=== PATIENT | female | born 1975 | race Caucasian/White ===

== ENCOUNTER 2023-10-21 16:02 | Outpatient (CLI) | payer MEDICAID, SELFPAY | END 2023-10-21 16:03 | disposition home or self-care (01) | LOC: NFLDREF 10-22 09:40 | PROVIDERS: Visit Provider Nurse Practitioner Family | DX: R82.90 Unspecified abnormal findings in urine (principal) | CPT/HCPCS: 87086 ==

== ENCOUNTER 2024-01-21 08:26 | Outpatient (CLI) | payer MEDICAID, SELFPAY | END 2024-01-21 08:27 | disposition home or self-care (01) | PROVIDERS: PCP Registered Nurse; Visit Provider Registered Nurse | DX: E03.9 Hypothyroidism, unspecified (principal); I10 Essential (primary) hypertension; Z13.220 Encounter for screening for lipoid disorders | CPT/HCPCS: 80053; 80061; 84443 ==

== ENCOUNTER 2024-02-22 08:01 | Outpatient (CLI) | payer MEDICAID, SELFPAY ==
--- NOTE | 2024-02-22 09:09 | W.ANESCHARGE ---
Anesthesia Charges Start Date/Time Anesthesia Start Date: 02/22/24 Anesthesia Start Time: 08:41 Stop Date/Time Anesthesia Stop Date: 02/22/24 Anesthesia Stop Time: 09:08
--- NOTE | 2024-02-22 10:52 | W.ANESCHARGE ---
Anesthesia Charges Start Date/Time Anesthesia Start Date: 02/22/24 Anesthesia Start Time: 08:41 Stop Date/Time Anesthesia Stop Date: 02/22/24 Anesthesia Stop Time: 09:08
== END 2024-02-22 08:02 | disposition home or self-care (01) ==
LOC: OP CLINIC 08:02
PROVIDERS: Visit Provider Surgery
DX: Z12.11 Encounter for screening for malignant neoplasm of colon (principal); D12.3 Benign neoplasm of transverse colon
CPT/HCPCS: 00811; 45380; 45385; 88305; J2704

== ENCOUNTER 2024-04-17 14:55 | Outpatient (CLI) | payer MEDICAID, SELFPAY ==
--- NOTE | 2024-04-17 15:00 | CRLHL7_ITS ---
For Patients: As a result of the Century Cures Act, medical imaging exams and procedure reports are released immediately into your electronic medical record. You may view this report before your referring provider. If you have questions, please contact your health care provider. BILATERAL SCREENING MAMMOGRAM WITH COMPUTER-AIDED DETECTION AND TOMOSYNTHESIS TECHNIQUE: CC and MLO views were obtained. These mammographic images have been obtained using full-field digital technique. These mammographic images were interpreted with the benefit of computer-aided detection. Breast Tomosynthesis was used in this interpretation. COMPARISON FILM: No comparison available. FINDINGS: There are scattered areas of fibroglandular density. IMPRESSION: There is no radiographic evidence for malignancy. ASSESSMENT: BI-RADS Category 1: Negative RECOMMENDATION: Routine screening mammogram in 1 year. A lay language report of this examination will be provided to the patient. Patel Fish M.D. Diagnostic Radiologist [email or web address] SP/Dictated by: Patel Fish MD @ 05/01/2024 8:24:00 AM (Electronically Signed)
== END 2024-04-17 14:56 | disposition home or self-care (01) ==
LOC: MAMMO 14:56
PROVIDERS: Visit Provider Registered Nurse
DX: Z12.31 Encounter for screening mammogram for malignant neoplasm of breast (principal)
CPT/HCPCS: 77063; 77067

== ENCOUNTER 2024-07-05 11:02 | Emergency (ER) | payer MEDICAID, SELFPAY ==
--- OUTSIDE RECORDS SUMMARY | 2024-07-05 11:06 | XMS_ITS | Patient Health Record ---
Author Organization [facility] Address [address] [place] [address] Care Team Providers Care Forming Press Operator Name Role Phone None, No PCP Primary Care Provider UnavailSong Hardy Unavailable [phone] Genoveva Bond Unavailable [phone] Allergies Allergen (clinical drug ingredient) Drug/Non Drug Allergy documented on EMR Reaction Allergy Type Onset Date Status gabapentin gabapentin Unknown Drug Allergy Activ e Substance with sulfonamide structure and antibacterial mechanism of action (substance) Sulfa Antibiotics Unknown Drug Allergy Active Results Component Value Reference Range Notes IRON, TIBC AND FERRITIN PANE L Reviewed date:04/19/2024 11:00:44 AM Interpretation: Performing Lab:[facility] [id number], [id number] Javier Smith Notes/Report: 0; 0; 0 IRON, TOTAL 72 40-190 mcg/dL IRON BINDING CAPACITY 251 250-450 mcg/dL (princess c) % SATURATION 29 16-45 % (calc) FERRITIN 101 16-232 ng/mL ESTRADIOL Reviewed date:04/19/2024 11:00:44 AM Interpretation: Performing Lab:[facility] [id number], [id number] Javier Smith Notes/Report: 0; 0; 0 ESTRADIOL 91 Reference Range Follicular Phase: 19-144 measurement. The cross reactivity could lead to falsely elevated estradiol test results leading to an inappropriate clinical assessment of estrogen status. [facility] order code [id number], Ultrasensitive LC/MS/MS demonstrates negligible cross reactivity with fulvestrant. Mid-Cycle: 64-357 Luteal Phase: 56-214 Postmenopausal: < or = 31 Reference range established on post-pubertal patient population. No pre-pubertal reference range established using this assay. For any patients for whom low Estradiol levels are anticipated (e.g. males, pre-pubertal children and hypogonadal/post-menopausal females), the [facility] Estradiol, Ultrasensitive, LCMSMS assay is recommended (order code [id number]). Please note: patients being treated with the drug fulvestrant (Faslodex(R)) have demonstrated significant interference in immunoassay methods for estradiol FSH Reviewed date:04/19/2024 11:00:44 AM Interpretation: Performing Lab:[facility] [address], [id number] Javier Smith Notes/Report: 0; 0; 0 FSH 17.6 Reference Range Follicular Phase 2.5-10.2 Mid-cycle Peak 3.1-17.7 Luteal Phase 1.5- 9.1 Postmenopausal 23.0-116.3 Testosterone, Total (IH) Reviewed date:04/19/2024 11:00:44 AM Interpretation: Performing Lab: Notes/Report: Access 2 ([id number]), [facility] Sex Hormone Binding Globulin (IH) Reviewed date:04/19/2024 11:00:45 AM Interpretation: Performing Lab: Notes/Report: Access 2 ([id number]), [facility] Testosterone, Free () Reviewed date:04/19/2024 11:00:45 AM Interpretation: Performing Lab: Notes/Report: Access 2 ([id number]), [facility] Reason For Referral No Information Medications Medication SIG (Take, Route, Frequency, Duration) Notes Start Date End Date Status Vitamin C Active Vitamin B12 Active Zolpidem Tartrate Ac tive Levothyroxine MG 0.125 Daily Created by [employer]. Dosage Instructions: Dosage= .125,Unit= MG,Periodicity= Daily Active Atomoxetine HCl 60 Daily Created by [employer]estry. Dosage Instructions: Dosage= 60,,Periodicity= Daily Active Estradiol MG 0.1 Twice weekly Created by [employer]estry. Dosage Instructions: Dosage= .10,Unit= MG,Periodicity= Twice weekly Active Testosterone Cream 12mg (3mg dose) Active Microgestin 1/20 Act hima Microgestin 1/20 1-20 MG-MCG 1 tablet Orally Once a day for 84 days Each pack is a 3 week supply, taking continuously 04/25/2024 Active Social History Tobacco Use: Social History Observation Description Date Details (start date - stop date) Never Smoker NA - NA Tobacco Control (Standard) Question Answer Notes Tobacco use: Nonsmoker Problems Problem Type SNOMED Code ICD Code Onset Dates Problem Status W/U Status Risk Notes Problem 16373495 Chronic fatigue (R53.82) Active confirmed Problem 588973282 Perimenopausal symptoms (N95.1) Active confirmed Vital Signs Blood pressure diastolic 76 mm Hg 04/25/2024 Height 66 in 04/25/2024 Blood pressure systolic 116 mm Hg 04/25/2024 Weight 145 lbs 04/25/2024 BMI 23.4 kg/m2 04/25/2024 Encounters Encounter Location Date Provider Diagnosis [address] [id number] 03/21/2024 Genoveva Bond [address] [id number] 03/21/2024 Genoveva Bond Menopausal symptoms N95.1 ; Chronic fatigue R53.82 and Low libido R68.82 [facility] [address] [place] [address] 04/18/2024 Genoveva Bond Menopausal and femal e climacteric states N95.1 and Fatigue R53.[address] [id number] 04/25/2024 Genoveva Bond Perimenopausal sympt oms N95.1 and Chronic fatigue R53.82 Assessments Encounter Date Diagnosis (ICD Code) Assessment Notes Treatment Notes Treatment Clinical Notes Section Notes 03/21/2024 Menopausal symptoms (ICD-10 - N95.1) 04/18/2024 Menopausal and female climacteric states (ICD-10 - N95.1) 04/18/2024 Fatigue (ICD-10 - R53.83) 03/21/2024 Chronic fatigue (ICD-10 - R53.82) 04/25/2024 Perimenopausal symptoms (ICD-10 - N95.1) -HRT labs reviewed in detail today -Discussed treatment options in detail including restarting OCPS, testosterone cream/gel/pellets , use of each therapy, common side effects, possible benefits, frequency of use, and cost of each -Mammogram up to date -Reviewed risk/benefit of OCPs including risk of blood clots. If B/P is elevated in the future, should stop OCPS until this is treated. -Plan for follow up in 3 months with free and total testosterone 1 week prior -Testosterone cream 3mg daily to labia, Rx to Mix 03/21/2024 Low libido (ICD-10 - R68.82) 04/25/2024 Chronic fatigue (ICD-10 - R53.82) -Discussed nothing noted in labs which would indicate extreme fatigue 03/21/2024 Other -Recommended stopping OCPs for 3-4 week and RTC for HRT Labs. Reasoning for labs discussed in detail -HRT options reviewed in detail, including estradiol, progesterone, testosterone (all routes), risks/benefits, common side effects, costs and dosing schedule. -Counseled on the differences between FDA approved bio-identical hormone replacement, and non-FDA approved compounded bio-idential hormone replacement. -Patient education and informed consent in HRT packet reviewed. -Counseled on associated increased risks for KS, CVA, VTE, and breast cancer with some forms of hormone replacement therapy. HRT could decrease associated lifetime risks, specifically with the use of bioidentical hormones including estradiol, progesterone, and/or testosterone preparations. Bioidentical hormonal therapies have not been shown to significantly increase risks for KS, CVA, VTE, and/or breast cancer, but do not guarantee prevention of developing these risks if used. technician terminal and repeater associated risks of non-FDA approved bioidential compounded hormones are not known. -Discussed potential side effects of pellet therapy including fluid retention, swelling, breast tenderness, nipple sensitivity, uterine spotting, mood swings and irritability, acne, hair loss and/or hair growth. -Breast cancer screening policy reviewed and printed handout given. Mammogram needed prior to HRT start. -Annual mammogram, clinical breast exam and SCHOOL HE[employer] AIDE exams recommended -Plan for follow-up in next available visit to review lab results and proceed with treatment options if desired and indicated 04/25/2024 Other Plan Of Treatment Next Appt Details Provider Name:Genoveva Bond, 07/18/2024 01:30:00 PM, [address] [facility], [address], [place], [place], [phone], Provider Name:Genoveva Bond, 07/25/2024 01:30:00 PM, [address] [facility], [address], [place], [place], [id number], Insurance Providers Payer Name Payer Address Payer Phone Subscriber Number Group Number Insured Name Patient Relationship to Insured Coverage Start Date Coverage End Date [employer] 2021 RAMIRO (CLIENT bill) [address] [place], [place] [phone] [id number] Katerina Díaz Self - patient is the insured Medical (General) History Medical History History ICD Code Abnormal pap HTN (she has had a few episo tamica of elevated diastolic but has never taken medication) Migraines without aura Depression/Anxiety Thyroid problem Surgical History Surgery Date(Month/Year) 2001 2008 2011 Sinus polyp removed 2019 Carpal tunnel B wrists 2020 Spinal fusion 2021 Hospitalization History Reason Date(Month/Year) 2011 2008 2021
--- OUTSIDE RECORDS SUMMARY | 2024-07-05 11:06 | XMS_ITS ---
Author Organization [facility] Address [address] [place] [address] Care Team Providers Care Veterinary Bacteriologist Name Role Phone None, No PCP Primary Care Provider Song Pineda Unavailable [phone] Genoveva Bond [phone] Encounters Encounter Location Date Provider Diagnosis [address] [id number] 03/21/2024 Genoveva Bond Plan Of Treatment Next Appt Details Provider Name:Gneoveva Bond, 07/18/2024 01:30:00 PM, [address] [place] [address], [address], [phone], Provider Name:Genoveva Bond, 07/25/2024 01:30:00 PM, [address] [place] [address], [address], [phone], Progress Notes * Katerina FREDERICKDOB:1975 (48 yo F)Acc No.[id number]:03/21/2024 Patient: Katerina ULLOA Provider: Sammi Bond :1975 A ge:48 Y S ex:Female Date:03/21/2024 Address:[address] [place] [id number] Pcp:No PCP None Subjective: * Chief Complaints: * * Medical History: Objective: * Vitals: Assessment: Plan: * Treatment: Care Plan: * Problems: * Images: Billing Information: * Visit Code: * Procedure Codes: * Electronic signature of Meron Bond CNP on 07/05/2024 at 10:30 AM CDT Sign off status: Pending * Provider: Sammi Bond Date: 0 03/21/2024 Generated for Tamanna strong/Gregory/Cordell on: 0 07/05/2024 10:30 AM CDT
[2024-07-05 11:10] VITALS: BP 127/80; PULSE 92; RESP 16; TEMP 37.1; O2SAT 99; BMI 20.8
--- NOTE | 2024-07-05 11:10 | ED.GENADULT ---
HPI - General Adult General Chief complaint: Abdominal Pain Stated complaint: upper right abdominal pain Time Seen by Provider: 07/05/24 11:10 History of Present Illness HPI narrative: Patient here with suspected gallbladder pain starting yesterday. 48-year-old woman presenting to the emergency department with achy and sharp right upper abdominal pain. Some cramping nature to it. This is now going on 24 hours. She starting to feel generally fluey. Suspect gallbladder problem. Her mother did have a gallbladder out. This latest episode began after having had some chicken soup? While persistent, worsened again after a muffin this morning. No dysuria but she feels she is probably pretty dehydrated at this point. Has not measured fever. Is quite nauseated. Did have an episode about 2 months ago which was brief. Sounds as though has had mildly elevated total bilirubin of 1.6 prior. No trauma. No hematuria. Does have ?abdominal issues? but nothing new here. Related Data Home Medications ?Medication ?Instructions ?Recorded ?Confirmed atomoxetine 60 mg capsule 60 mg PO QAM 10/21/23 07/10/24 (Strattera) norethindrone acetate 1 mg-ethinyl 1 tab PO QDAY 10/21/23 07/10/24 estradiol 20 mcg tablet (Microgestin) zolpidem 12.5 mg tablet,extended 12.5 mg PO QHS PRN 10/21/23 07/10/24 release,multiphase Previous Rx's ?Medication ?Instructions ?Recorded levothyroxine 125 mcg capsule 125 mcg PO QDAY 90 days #90 caps 01/21/24 estradiol 10 mcg vaginal tablet 10 mcg vaginal QDAY #24 tabs 01/25/24 (Vagifem) fluconazole 150 mg tablet 150 mg PO Q3D 2 doses #2 tabs 07/10/24 ketoconazole 2 % shampoo 1 applic topical 3XW 4 weeks #120 07/10/24 mL Allergies Allergy/AdvReac Type Severity Reaction Status Date / Time Sulfa (Sulfonamide Allergy Intermediate Hives Verified 07/10/24 11:10 Antibiotics) gabapentin Allergy Mild Rash Verified 07/10/24 11:10 Review of Systems Status of ROS: Reports: 6 or more systems reviewed and unremarkable except as noted in History and below [facility] Medical History Migraines ?G43.909 - Migraine, unspecified, not intractable, without status migrainosus (ICD-10) 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] (ICD-10) Chronic neck and back pain ?M54.2 - Cervicalgia (ICD-10) ?M54.9 - Dorsalgia, unspecified (ICD-10) ?G89.29 - Other chronic pain (ICD-10) Depression ?F32.A - Depression, unspecified (ICD-10) Chronic constipation ?K59.09 - Other constipation (ICD-10) Essential hypertension ?I10 - Essential (primary) hypertension (ICD-10) Hypothyroidism ?E03.9 - Hypothyroidism, unspecified (ICD-10) Insomnia ?G47.00 - Insomnia, unspecified (ICD-10) ADHD (attention deficit hyperactivity disorder) ?F90.9 - Attention-deficit hyperactivity disorder, unspecified type (ICD-10) Adjustment reaction with anxiety ?F43.22 - Adjustment disorder with anxiety (ICD-10) History of multiple concussions ?Z87.820 - Personal history of traumatic brain injury (ICD-10) History of substance abuse ?F19.11 - Other psychoactive substance abuse, in remission (ICD-10) Bacterial vaginosis (10/22/23) ?N76.0 - Acute vaginitis (ICD-10) ?B96.89 - Other specified bacterial agents as the cause of diseases classified elsewhere (ICD-10) Vaginal yeast infection (10/22/23) ?B37.31 - Acute candidiasis of vulva and vagina (ICD-10) Surgical History History of lumbar fusion ?Z98.1 - Arthrodesis status (ICD-10) History of 3 sections ?Z98.891 - History of uterine scar from previous surgery (ICD-10) History of carpal tunnel release of both wrists (06/2020) ?Z98.890 - Other specified postprocedural states (ICD-10) Family History Sister Cerebral palsy Mother Bipolar disorder Thyroid disease High blood pressure Diabetes Father Thyroid disease Social History Smoking Status: Never smoker How often do you have a drink containing alcohol: never How often do you have six or more drinks on one occasion: Never AUDIT-C Alcohol total score: 0 Non-prescribed substance use: denies use Exam Narrative: Exam Narrative: Pleasant. NAD. Breathing easily. Lungs are clear. Heart in mildly elevated rate but regular rhythm. Abdomen with present bowel sounds. No peritoneal signs but quite tender in the right upper abdomen it little bit of discomfort to palpation in the right flank. Const: Vital Signs, click to edit/add: Vital Signs - 24 hr 07/05/24 11:10 07/05/24 11:43 Temperature 98.8 F Pulse Rate [Pulse Oximeter] 92 74 Respiratory Rate 16 16 Blood Pressure [Ri ght Upper Arm] 127/80 123/91 H Pulse Oximetry 99 99 Oxygen Delivery Me thod Room Air Room Air Documenting provider has reviewed patient's vital signs: yes Course Vital Signs Vital signs: Initial Vital Signs Temperature 98.8 F 07/05/24 11:10 Temperature Source Temporal Artery Scan 07/05/24 11:10 Pulse Rate 92 07/05/24 11:10 Pulse Rhythm Regular 07/05/24 11:10 Respiratory Rate 16 07/05/24 11:10 Blood Pressure 127/80 07/05/24 11:10 Blood Pressure Mean 95 07/05/24 11:10 Blood Pressure Position Sitting 07/05/24 11:10 Pulse Oximetry 99 07/05/24 11:10 Oxygen Delivery Method Room Air 07/05/24 11:10 Vital Signs Temperature 98.8 F 07/05/24 11:10 Pulse Rate 92 07/05/24 11:10 Respiratory Rate 16 07/05/24 11:10 Blood Pressure 127/80 07/05/24 11:10 Pulse Oximetry 99 07/05/24 11:10 Oxygen Delivery Method Room Air 07/05/24 11:10 Temperature 98.8 F 07/05/24 11:10 Pulse Rate 74 07/05/24 11:43 Respiratory Rate 16 07/05/24 11:43 Blood Pressure 123/91 H 07/05/24 11:43 Pulse Oximetry 99 07/05/24 11:43 Oxygen Delivery Method Room Air 07/05/24 11:43 Medications Administered Medications: Discontinued Medications Generic Name Dose Route Start Last Admin Trade Name Freq PRN Reason Stop Dose Admin Sodium Chloride 1,000 mls @ 1,000 mls/hr 07/05/24 11:20 07/05/24 12:37 0.9 % Sodium Chloride 1000 Ml IV 07/05/24 12:19 Infused .Q1H ONE Infusion Ketorolac Tromethamine 30 mg 07/05/24 11:20 07/05/24 11:39 Ketorolac 30 Mg/Ml Inj IVP 07/05/24 11:21 30 mg ONCE ONE Administration Ondansetron HCl 4 mg 07/05/24 11:20 07/05/24 11:39 Ondansetron 2 Mg/Ml Inj IVP 07/05/24 11:21 4 mg ONCE ONE Administration Medical Decision Making MDM Narrative Medical decision making narrative: I would suspect biliary colic or gallbladder disease or possible duodenitis/duodenal ulcer. Screening labs will be done. Fluids, pain meds, antiemetic. Labs with mildly elevated total bilirubin, normal white count Discussed findings of ultrasound with line haul driver. Noted biliary sludge. I suspect this is most likely explanation for pain; that being biliary colic. Radiology over-read below Indication: Right upper quadrant pain extending to the right flank Technique: Sonography of the abdomen was performed limited to the structures discussed below. Comparison: There are no prior studies for comparison. Findings: There is sludge within the gallbladder. No stones or pericholecystic fluid. Wall thickness is normal at 2 millimeters. No reported sonographic Carroll`s sign. The common duct measures 5 millimeters which is considered normal. The liver is normal in size and configuration measuring 13.5 centimeters. No mass. Normal echogenicity. No intrahepatic biliary ductal dilation. The pancreas as visualized appears normal. Portions are obscured by bowel gas. The right kidney is normal in size measuring 10.5 x 4.0 x 5.7 centimeters. Cortical thickness is normal 1.5 centimeters. No solid mass. No hydronephrosis. No calculus. Simple cyst right kidney measuring 1.2 centimeters in greatest dimension. The main portal vein is patent with appropriate direction of flow. Diameter is 1.1 centimeters Impression: Sludge within the gallbladder. No stones. No evidence of acute cholecystitis or common duct obstruction. Incidental small right renal cyst. Examination is otherwise overall unremarkable. Did discuss this case with General surgery of for next steps in care. I am anticipating outpatient follow-up. Question was raised about Gilbert's syndrome; I do not see any other indication of this on exam. Recommendations are to discharge with some pain medication. Discussing follow-up and management of pain. In particular just go would appreciate some Zofran. We also discussed substance use history. She feels comfortable leaving with some Henderson to have on hand. See patient discharge plan for further discussion Stay well-hydrated. I would go with a low-fat diet for the moment. I did speak with Dr. Odom today, one of our general surgeons. Recommendations are for consultation with one of the general surgeons. You may call the clinic to schedule this. Prescribing Zofran and some Henderson as discussed from [facility]. For uncontrolled pain not improved after a couple of hours after taking pain medication, particularly accompanied by fever, please return. Medical Records Medical records reviewed: Yes I reviewed the patient's medical records Lab Data Lab results reviewed: Yes I reviewed the patient's lab results Labs: Lab Results 07/05/24 07/05/24 Range/Units 11:20 12:35 WBC 4.71 (4.50-11.00) K/uL RBC 4.61 (4.00-5.20) m/uL Hgb 14.2 (12.0-16.0) gm/dL Hct 42.2 (33.0-51.0) % MCV 92 (80-100) fL MCH 31 (26-34) pg MCHC 34 (32-36) gm/dL RDW Coeff of Ezio 13.2 (11.5-15.5) % Plt Count 248 (140-440) K/uL Neut % (Auto) 62.0 (42.0-72.0) % Lymph % (Auto) 31.0 (20-44) % [place]ascade % (Auto) 5.3 (0.0-11.0) % Eos % (Auto) 1.3 (0.0-7.0) % Baso % (Auto) 0.4 (0.0-3.0) % Neut # (Auto) 2.92 (1.7-7.0) K/uL Lymph # (Auto) 1.46 (0.90-2.90) K/uL Cascade # (Auto) 0.20 (0.00-0.90) K/UL Eos # (Auto) 0.06 (0.00-0.50) K/uL Baso # (Auto) 0.02 (0.00-0.30) K/uL Abs Immat Gran (auto) 0.00 (0.00-0.30) K/uL Imm/Tot Granulo (auto) 0.0 % Sodium 138 (135-149) mmol/L Potassium 3.8 (3.6-5.1) mmol/L Chloride 106 (96-114) mmol/L Carbon Dioxide 21 (20-32) mmol/L Anion Gap 11 (7-15) mEq/L BUN 12 (5-24) mg/dL Creatinine 0.8 (0.5-1.5) mg/dL Estimated Creat Clear 81.66 Estimated GFR 91 ml/min Glucose 110 (60-115) mg/dL Calcium 9.1 (8.4-10.6) mg/dL Total Bilirubin 2.1 H (0.1-1.5) mg/dL Direct Bilirubin 0.2 (0.0-0.5) mg/dL AST 27 (12-35) U/L ALT 22 (4-35) U/L Alkaline Phosphatase 34 L (40-150) U/L C-Reactive Protein < 0.5 L (0.5-1.0) mg/dL Total Protein 7.7 (6.0-8.3) g/dL Albumin 4.7 (3.3-5.0) g/dL Urine Color Dark yellow (Yellow) Urine Appearance Clear (Clear) Urine pH 6.5 (5.0-8.5) Ur Specific [place] 1.020 (1.000-1.030) Urine Protein Negative (Negative) Urine Glucose (UA) Negative (Negative) Urine Ketones Negative (Negative) Urine Blood Negative (Negative) Urine Nitrite Negative (Negative) Urine Bilirubin Negative (Negative) Urine Urobilinogen 0.2 (0.2-1.0) Ur Leukocyte Esterase Negative (Negative) Urine RBC 0-2 (0-2) Urine WBC 0-2 (0-5) Ur Squamous Epith Cells None (None-Few) Urine Bacteria None (None) Discharge Plan Discharge Clinical Impression: Right upper quadrant abdominal pain, Biliary colic, Elevated bilirubin Patient Disposition: Home, Self-Care Condition: Improved Additional Instructions: Stay well-hydrated. I would go with a low-fat diet for the moment. I did speak with Dr. Odom today, one of our general surgeons. Recommendations are for consultation with one of the general surgeons. You may call the clinic to schedule this. Prescribing Zofran and some Henderson as discussed from [facility]. For uncontrolled pain not improved after a couple of hours after taking pain medication, particularly accompanied by fever, please return. Prescriptions: No Action norethindrone ac-eth estradiol [Microgestin 03/27 ()] 1-20 mg-mcg tablet 1 tab PO QDAY atomoxetine [Strattera] 60 mg capsule 60 mg PO QAM zolpidem 12.5 mg tablet,ext release multiphase 12.5 mg PO QHS PRN levothyroxine 125 mcg capsule 125 mcg PO QDAY 90 Days Qty: 90 3RF estradiol [Vagifem] 10 mcg tablet 10 mcg vaginal QDAY Qty: 24 4RF Rx Instructions: use nightly x2 weeks, then twice weekly thereafter ketoconazole 2 % shampoo 1 applic topical 3XW 28 Days Qty: 120 1RF fluconazole 150 mg tablet 150 mg PO Q3D Qty: 2 0RF Rx Instructions: may repeat second dose 72 hrs after first dose if symptoms persist Follow Up/Referrals: Provider,Not a Local [Primary Care Provider] - Stand Alone Forms: [employer] Info Instructions
--- NOTE | 2024-07-05 11:20 | CRLHL7_ITS ---
For Patients: As a result of the Century Cures Act, medical imaging exams and procedure reports are released immediately into your electronic medical record. You may view this report before your referring provider. If you have questions, please contact your health care provider. Indication: Right upper quadrant pain extending to the right flank Technique: Sonography of the abdomen was performed limited to the structures discussed below. Comparison: There are no prior studies for comparison. Findings: There is sludge within the gallbladder. No stones or pericholecystic fluid. Wall thickness is normal at 2 millimeters. No reported sonographic Carroll`s sign. The common duct measures 5 millimeters which is considered normal. The liver is normal in size and configuration measuring 13.5 centimeters. No mass. Normal echogenicity. No intrahepatic biliary ductal dilation. The pancreas as visualized appears normal. Portions are obscured by bowel gas. The right kidney is normal in size measuring 10.5 x 4.0 x 5.7 centimeters. Cortical thickness is normal 1.5 centimeters. No solid mass. No hydronephrosis. No calculus. Simple cyst right kidney measuring 1.2 centimeters in greatest dimension. The main portal vein is patent with appropriate direction of flow. Diameter is 1.1 centimeters Impression: Sludge within the gallbladder. No stones. No evidence of acute cholecystitis or common duct obstruction. Incidental small right renal cyst. Examination is otherwise overall unremarkable. Dictated by Sawyer Ribeiro MD @ 07/05/2024 12:04:53 PM (Electronically Signed)
[2024-07-05 11:35] LABS: Basophils Absolute Auto 0.02 K/uL (0.00-0.30); Basophils Percent Auto 0.4 % (0.0-3.0); Eosinophils Absolute Auto 0.06 K/uL (0.00-0.50); Eosinophils Percent Auto 1.3 % (0.0-7.0); Hematocrit 42.2 % (33.0-51.0); Hemoglobin* 14.2 gm/dL (12.0-16.0); Lymphocytes Absolute Auto 1.46 K/uL (0.90-2.90); Mean Corpuscular HGB Conc 34 gm/dL (32-36); Mean Corpuscular Hemoglobin 31 pg (26-34); Mean Corpuscular Volume 92 fL (80-100); Monocytes Percent Auto 5.3 % (0.0-11.0); Neutrophils Absolute Auto 2.92 K/uL (1.7-7.0); Platelet Count* 248 K/uL (140-440); RDW Coefficient of Variation % 13.2 % (11.5-15.5); Red Blood Count 4.61 m/uL (4.00-5.20); White Blood Count* 4.71 K/uL (4.50-11.00)
[2024-07-05] MEDS: KETOROLAC 30 MG/ML inj IVP (11:39)
[2024-07-05] MEDS: 0.9 % SODIUM CHLORIDE 1000 ml 1,000 ML IV (11:39)
[2024-07-05] MEDS: ONDANSETRON 2 MG/ML inj 4 MG IVP (11:39)
[2024-07-05 11:42] LABS: Slide Review Reflex No
[2024-07-05 11:43] VITALS: BP 123/91; PULSE 74; RESP 16; O2SAT 99
[2024-07-05 11:44] LABS: Albumin* 4.7 g/dL (3.3-5.0); Chloride* 106 mmol/L (96-114); Potassium* 3.8 mmol/L (3.6-5.1); Sodium* 138 mmol/L (135-149)
[2024-07-05 11:46] LABS: Blood Urea Nitrogen* 12 mg/dL (5-24); Creatinine* 0.8 mg/dL (0.5-1.5); Est. Creatinine Clearance* 81.66; Estimated Glomerular Filt Rate 91 ml/min
[2024-07-05 11:47] LABS: Alanine Aminotransferase* 22 U/L (4-35); Alkaline Phosphatase* 34 U/L (40-150); Anion Gap 11 mEq/L (7-15); Aspartate Amino Transferase* 27 U/L (12-35); Bilirubin Direct* 0.2 mg/dL (0.0-0.5); Bilirubin Total* 2.1 mg/dL (0.1-1.5); Calcium* 9.1 mg/dL (8.4-10.6); Carbon Dioxide* 21 mmol/L (20-32); Glucose* 110 mg/dL (60-115); Total Protein* 7.7 g/dL (6.0-8.3)
[2024-07-05 11:52] LABS: C Reactive Protein* < 0.5 mg/dL (0.5-1.0)
[2024-07-05 12:41] LABS: Appearance Urine Clear (Clear); Bilirubin Urine Negative (Negative); Blood Urine Negative (Negative); Color Urine Dark yellow (Yellow); Glucose Urine Negative (Negative); Ketones Urine Negative (Negative); Leukocyte Esterase Urine Negative (Negative); Nitrite Urine Negative (Negative); Protein Urine Negative (Negative); Urobilinogen Urine 0.2 (0.2-1.0); pH Urine 6.5 (5.0-8.5)
[2024-07-05 13:02] LABS: RBC Urine 0-2 (0-2); WBC Urine 0-2 (0-5)
== END 2024-07-05 13:42 | disposition home or self-care (01) ==
PROVIDERS: Emergency Provider Family Medicine
DX: R10.11 Right upper quadrant pain (principal); K80.50 Calculus of bile duct without cholangitis or cholecystitis without obstruction; E80.7 Disorder of bilirubin metabolism, unspecified
CPT/HCPCS: 36415; 76705; 80048; 80076; 81001; 85025; 86140; 96374; 96375; 99284; J1885; J2405; J7030

== ENCOUNTER 2024-07-26 09:03 | Outpatient (CLI) | payer MEDICAID, SELFPAY ==
--- NOTE | 2024-07-26 09:15 | CRLHL7_ITS ---
For Patients: As a result of the Century Cures Act, medical imaging exams and procedure reports are released immediately into your electronic medical record. You may view this report before your referring provider. If you have questions, please contact your health care provider. Indication: right hip labral tear Comparison: X-rays 07/12/2024 Procedure : Informed consent was obtained. The site was marked. Time-out was performed. The skin of the right hip was cleansed with ChloraPrep. A sterile drape was placed. 8 cc of 1 percent lidocaine was administered for superficial anesthesia. Subsequently a 22 gauge spinal needle was introduced into the right hip joint under intermittent fluoroscopic guidance. Injection of 2 cc nonionic Omnipaque 240 contrast confirmed intra-articular location. Subsequently 11 cc of dilute gadolinium were injected. The needle was removed and hemostasis achieved with direct pressure. A dressing was placed. The patient tolerated the procedure well without immediate complication and was immediately sent to MRI for imaging. Total fluoroscopy time 44 seconds. Impression: Successful fluoroscopically guided right hip arthrogram for MRI. Dictated by Patel Fish MD @ 07/26/2024 10:18:48 AM (Electronically Signed)
--- NOTE | 2024-07-26 10:15 | MR_ITS ---
[address] [address] Phone:?[phone] Fax:?[phone] Referring Physician Information: Tre Soler M.D. [id number] [facility] [address] Phone:?[phone] Fax:?[phone] Patient:Nico Díaz D.O.B:?1975 Sex:?Female Phone:? [facility] MRN:?[id number] Exam Date:?07/26/2024 EXAM: MR ARTHROGRAM of the RIGHT HIP CLINICAL HISTORY: Ongoing right hip pain. Evaluate for labral tear. COMPARISONS: Plain radiographs 07/12/2024. TECHNIQUE: MR sequences of the right hip: coronals: PD, T2, T1FS sagittals: PD, T2, T1FS axial obliques: PD axials: PD FS coronals of pelvis: T1, STIR Sedation: None Contrast: Intra-articular gadolinium based contrast. The injection procedure is reported separately. FINDINGS: Pelvis osseous structures: Sacrum: No fracture or destructive osseous lesion is seen of the imaged portions of the sacrum. Sacroiliac joints: Mixed subchondral sclerotic changes and subchondral edema- like signal surrounding the anteroinferior aspect of the left sacroiliac joint are likely degenerative in etiology. Pubic rami: Unremarkable. Symphysis pubis: There is no evidence of acute osteitis pubis. Labrum: There is mild fraying of the superior, anterosuperior, and anterior portions of the right hip labrum. No discrete/well-defined labral tear is seen. Hip joint: The presence of contrast reflects intra-articular injection. No discrete chondral loss is seen. No degenerative subchondral cystic change or degenerative subchondral edema-like signal is seen. Proximal femur: No fracture, osseous stress injury, avascular necrosis, or suspicious bone marrow signal abnormality is seen. The right femoral alpha angle measures 60 degrees at the 12:30 o'clock position anterosuperiorly measured on coronal series 6 image 15. Acetabulum: No subchondral cysts, periacetabular ossicles or marrow edema. Coverage: Right lateral center edge (CE) angle measures approximately 33? correcting for coronal pelvic tilt, midline coronal series 17. Ligamentum teres: Unremarkable. Myotendinous structures: Gluteus abductors: The gluteus minimus and medius tendons are unremarkable. Rectus abdominis-adductor longus aponeurosis, adductors, and rectus abdominis: Unremarkable. Hamstrings: Unremarkable. Flexors: The iliopsoas and rectus femoris tendons are intact. Quadratus femoris muscle: Unremarkable. Gluteal aponeurotic fascia and IT band: Unremarkable. Piriformis muscle: Unremarkable. Pelvic soft tissues: Incidental note is made of uterine fibroids. The lumbar spine including multilevel degenerative disc disease is not optimally evaluated by this dedicated MRI of the right hip. IMPRESSION: 1. Mild fraying of the superior, anterosuperior, and anterior portions of the right hip labrum without discrete/well-defined labral tear. No right hip chondral loss or subchondral cystic change/subchondral edema-like signal. 2. Mildly increased right femoral alpha angle of 60 degrees at the 12:30 o'clock position anterosuperiorly. 3. Mixed subchondral sclerotic changes and subchondral edema-like signal surrounding the anteroinferior aspect of the left sacroiliac joint are likely degenerative in etiology. 4. The lumbar spine including multilevel degenerative disc disease is not optimally evaluated by this dedicated MRI of the right hip. Dedicated MRI of the lumbar spine could be obtained for further evaluation if clinically appropriate. 5. No fracture, osseous stress injury, or tendinous pathology of the right hip. RCB Electronically signed on 07/26/2024 3:00:00 PM by Francois Gibbons M.D.
== END 2024-07-26 09:04 | disposition home or self-care (01) ==
LOC: RAD 09:04
PROVIDERS: PCP Registered Nurse; Visit Provider Orthopaedic Surgery
DX: M25.551 Pain in right hip (principal); M51.369 Other intervertebral disc degeneration, lumbar region without mention of lumbar back pain or lower extremity pain
CPT/HCPCS: 27093; 73525; 73722; 77002; A9575; Q9966

== ENCOUNTER 2024-08-01 07:29 | Day surgery (SDC) | payer MEDICAID, SELFPAY ==
[2024-08-01] VITALS (17 sets, daily range): BP systolic 107–137; BP diastolic 61–92; PULSE 54–82; RESP 14–20; TEMP 36.6–37.1; O2SAT 95–100; BMI 21.0
[2024-08-01] MEDS: LACTATED RINGERS 1000 ML 1,000 ML 100 ML IV ×2 (07:35→09:41)
[2024-08-01 08:06] LABS: Ur HCG Qualitative* Negative (Negative)
--- NOTE | 2024-08-01 08:22 | W.PM.H&PU ---
History & Physical Update History & Physical Update H&P Reviewed and patient assessed: No changes noted
[2024-08-01] MEDS: CEFAZOLIN 1 GM inj IVP (09:15)
[2024-08-01] MEDS: BUPIVACAINE 0.5% 30 ML 20 ML INJECTION (09:23)
--- NOTE | 2024-08-01 09:26 | SUR.OPER ---
PATIENT QUESTIONS ANSWERED SATISFACTORILY PREOPERATIVELY. PATIENT BROUGHT TO OR #1 PER CART. Patient positioned supine on OR #1 bed. The perioperative team supported arms bilaterally on arm boards. Final approval of positioning by surgeon.
--- NOTE | 2024-08-01 10:02 | PM.GSPRC ---
Operative Note Date of procedure: 08/01/24 Pre-op diagnosis: Chronic cholecystitis Post-op diagnosis: Same Type of Procedure: Laparoscopic cholecystectomy Indications: Patient is a 49-year-old female who presented to clinic with clinical workup and symptoms consistent with chronic cholecystitis. Risks and benefits of operative intervention were discussed at length with the patient. Risks included but was not limited to: Bleeding, infection, risk of damage to surrounding structures, possible need for additional procedures, possible need to convert to an open operation and postoperative complications such as pneumonia, pulmonary emboli or MO. All questions and concerns were addressed with the patient agreeing to proceed. Procedure Description: After discussing the risks and benefits of the procedure, the patient signed informed consent.? The operative site was marked and the patient was brought to the operating room and placed on the operating table in supine position.? Care was taken to pad the patient's pressure points.?? The patient was then intubated by anesthesia.?? The operative site was then prepped and draped in the usual sterile fashion.? A time-out was then performed. Entrance to the abdomen was gained via a 5 mm Visiport in the left upper quadrant. The abdomen was insufflated and briefly surveyed for signs of injury. There was none. 11 mm umbilical port was placed as well as 2 working ports along the right costal margin. Patient was then placed in reverse Trendelenburg position with the right side up. The gallbladder fundus was grasped and retracted cephalad. [A small amount of dissection was needed to free omental adhesions from the gallbladder.] The infundibulum was grasped. A combination of hook cautery and blunt dissection was used to carefully dissect out the cystic duct and artery until they could clearly be seen entering the gallbladder without any intervening structures. The gallbladder was dissected off the cystic plate to achieve the critical view. Once this was achieved the cystic duct and artery were each clipped with 2 clips proximally and 1 clip distally and transected with the scissors. The gallbladder was then taken off of the liver bed. And removed from the abdomen using an Endo-Catch bag. The gallbladder bed was surveyed for hemostasis. Which was excellent. The ports were then removed under direct vision. The umbilical port fascia was closed with 0 Vicryl. The skin was closed with absorbable subcuticular suture. Instrument sponge and needle counts were correct at the end of the case. The patient was then woken and transferred to the PACU in stable condition. Findings: Normal appearing gallbladder. Anesthesia: GETA Surgeon: Apoorva Odom MD Estimated blood loss (mL): 5 Specimen: Gallbladder Condition: stable Disposition: PACU
--- NOTE | 2024-08-01 10:17 | P.ANES_ITS ---
Anesthesia Charges Start Date/Time Anesthesia Start Date: 08/01/24 Anesthesia Start Time: 09:04 Stop Date/Time Anesthesia Stop Date: 08/01/24 Anesthesia Stop Time: 10:10 Coding CPT Codes CPT Codes: ANESTH SURG UPPER ABDOMEN - 84314 ([id number]) P2 - PATIENT W/MILD SYST DISEASE, QK - HUMAN RESOURCES TEAM MEMBER 2-4 CNCRNT ANES PROC, QX - SHOT BLAST EQUIPMENT OPERATOR SVC W/ MD MED DIRECTION
--- NOTE | 2024-08-01 10:17 | W.ANESCHARGE ---
Anesthesia Charges Start Date/Time Anesthesia Start Date: 08/01/24 Anesthesia Start Time: 09:04 Stop Date/Time Anesthesia Stop Date: 08/01/24 Anesthesia Stop Time: 10:10 Coding CPT Codes CPT Codes: ANESTH SURG UPPER ABDOMEN - 40569 ([id number]) P2 - PATIENT W/MILD SYST DISEASE, QK - PARAPLANNER 2-4 CNCRNT ANES PROC, QX - MOTEL OPERATOR SVC W/ MD MED DIRECTION
--- NOTE | 2024-08-01 10:22 | P.ANES_ITS ---
Anesthesia Charges Start Date/Time Anesthesia Start Date: 08/01/24 Anesthesia Start Time: 09:04 Stop Date/Time Anesthesia Stop Date: 08/01/24 Anesthesia Stop Time: 10:10 Coding CPT Codes CPT Codes: ANESTH SURG UPPER ABDOMEN - 57566 ([id number]) QK - MOLD YARN SUPERVISOR 2-4 CNCRNT ANES PROC, QX - PROOFER PREPRESS SVC W/ MD MED DIRECTION, P2 - PATIENT W/MILD SYST DISEASE
--- NOTE | 2024-08-01 10:22 | W.ANESCHARGE ---
Anesthesia Charges Start Date/Time Anesthesia Start Date: 08/01/24 Anesthesia Start Time: 09:04 Stop Date/Time Anesthesia Stop Date: 08/01/24 Anesthesia Stop Time: 10:10 Coding CPT Codes CPT Codes: ANESTH SURG UPPER ABDOMEN - 97948 ([id number]) QK - SAND MILL OPERATOR FACING SAND 2-4 CNCRNT ANES PROC, QX - CLINICAL ACADEMIC ALLERGIST SVC W/ MD MED DIRECTION, P2 - PATIENT W/MILD SYST DISEASE
[2024-08-01] MEDS: HYDROmorphone 0.5 mg/0.5 ml inj IVP (10:23)
--- NOTE | 2024-08-01 10:28 | SUR.PHASEI ---
Patient arrived in Pacu drowsy, no complaints of nausea or pain.
--- NOTE | 2024-08-01 10:29 | SUR.PHASEI ---
15 minutes into recovery, patient was more alert and complaining of a pain level of 6 out of 10, offered medication, medication given
[2024-08-01] MEDS: ONDANSETRON 2 MG/ML inj 4 MG IVP (10:30)
--- NOTE | 2024-08-01 10:39 | SUR.PHASEI ---
Patient awake and having less pain and less nause after receiving medications. Patient meets discharge criteria from PACU
[2024-08-01] MEDS: HYDROCODONE-ACETAMIN 5-325 MG 1 TAB PO (11:30)
[2024-08-01] MEDS: fentaNYL 100 MCG/2 ML inj 50 MCG IVP (12:15)
[2024-08-01] MEDS: METOCLOPRAMIDE HCL 5 MG/ML INJ 10 MG IVP (12:15)
== END 2024-08-01 12:57 | disposition home or self-care (01) ==
PROVIDERS: PCP Registered Nurse; Visit Provider Surgery
PROC: 0FT44ZZ Resection of Gallbladder, Percutaneous Endoscopic Approach (ICD-10-PCS; CPT 47562; principal; 2024-08-01 08:45)
DX: K81.1 Chronic cholecystitis (principal); I10 Essential (primary) hypertension
CPT/HCPCS: 47562; 00790; 81025; 88304; A9270; J0330; J0665; J0690; J1171; J2250; J2405; J2704; J2765; J3010; J3490; J7120

== ENCOUNTER 2024-10-30 09:00 | Outpatient (RCR) | payer MEDICAID, OTHER, SELFPAY ==
--- NOTE | 2024-08-28 10:53 | PT.OPEX ---
PT Center Outpatient Eval PT [facility] Outpatient Eval Start: 08/28/24 07:28 Freq: Status: Active Protocol: Document 08/28/24 07:29 VMS (Rec: 08/28/24 10:49 VMS [id number]) E-signed By Nakia Kuo Physical Therapy Outpatient Evaluation Insurance Information Recert Due Date 11/20/24 Insurance Name [employer] Medical Diagnosis R hip pain Treating Diagnosis R hip pain Low back pain Muscle weakness (generalized) Imaging Report Age-appropriate fraying of labrum (07/26/24) Information Referring MD Soler Subjective Preferred Name Katerina Subjective August 28 2024 : Katerina is a 49 year F with complaints of R hip pain. Patient notes with hip pain she will often have back pain as well. Ibuprofen seems to help with the back pain, but the hip pain continues to be relenting. Date of onset: 2013- describes back injury which caused circumduction of R leg. In 2021 had back fusion which helped clear up the back but hip has been hurting since . Aggravating Factors: sitting prolonged periods of time, sleeping on R side, walking, able to complete ADLs but with compensations Easing Factors: heating pad, alleviation of pressure Method of Injury: Suspects d/t compensations from back pain Radiation: Will radiate into low back pain, especially after being on feet for prolonged periods of time Numbness / Tingling: Denies Progression: worse since initial onset, has stayed approximately the same for the past year Activity: used to run 3 days/week, but has not been able to d/t pain (attempts every few months), walks (15 -20 min prior to pain onset) History of Hip Injuries: hx of horseback riding and gymnastics. Cannot remember anything hip specific happening, but notes likely increased wear and tear. Review of Systems: History obtained from chart review, health history form, and the patient. I am only responding to those symptoms which are directly relevant to my consultation. Recommend the patient follow up with their primary/referring provider for other symptoms. Pain Comments Pain Location/Type: anterior/lateral hip and will sometimes have posterior pain. Describes pain as deep. 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 Is able to complete job requirements, but will have pain with prolonged standing and walking Objective Other/Pertinent Functional Tests: Objective Gait: slightly decreased stance time on R Squats: limited depth, offloads onto L; pain in low back; after 3: mild discomfort in hip Balance: SLS eyes open: 30+ sec bilaterally; SLS eyes closed: R: 4 sec; L:28 sec Posture/Observation: Sits in positions to open the hip, frequently ER the leg JPA: Lateral glide: normal; patient notes this feels good Anterior glide: Not assessed Posterior glide: pain on the R; unable to assess end feel Inferior glide: normal Distraction: patient notes this feels good A/PROM: Hip: Flex: WFL bilaterally Ext: WFL bilaterally Abd: WFL bilaterally Add: WFL bilaterally IR: Limited on R; WFL L ER: WFL bilaterally Strength Knee: Quadriceps: 5/5 L; 4/5 R Hamstrings: 4/5 bilat Hip: Flex: 4/5 L; 4-/5 R Ext: 3/5 L; 3-/5 R Glute Min: 3+/5 bilat Glute Med: 3+/5 bilat TFL: 4-/5 bilat Muscle Length Luis Test: (+) bilat for rec fem tightness; 38 deg L; 42 deg R (knee flexion) Miley's Test: (+) bilat Hamstring 90/90: (-) bilat Special Tests: SLR: (+) for neural tension Slump: (+) bilat for neural tension Quadrants or AROM with OP: Not assessed today CONI: MARGO: (-) notes feels good Log Roll: Not assessed today Scour: (+) on R Functional Test LEFS: 42 / 80 = 52.5 % Performed & Score Assessment Assessment/ 2024-08-28: Initial Evaluation Assessment & PT Impression Impression: Ms. Díaz is a pleasant 49 year female presenting to outpatient physical therapy with primary complaint of R hip pain. Pertinent physical examination findings include neural tension bilaterally, limited bilateral LE and hip strength (R weaker than L), abnormal posturing to relieve symptoms, bilateral rectus femoris tightness, and impaired core strength. Functionally, the patient is limited in activities including standing /sitting for prolonged periods of time, completing ADLs without compensations, sleeping and participation in recreational activities such as walking and running. She requires skilled physical therapy in order to address the above impairments, improve patients symptom status, and assist her in returning to her prior level of function. Barriers to Learning: None Primary Functional Walking/running, standing/walking for prolonged periods Limitations of time, sleeping Plan of Care Rehabilitation Good Potential Physical Therapy STG: Goals 1. Patient will be independent with HEP by the end of 4 weeks. 2. Patient will improve hip flexion strength to at least 4/5 bilaterally by the end of 6 weeks. 3. Patient will improve hip abduction strength to at least 4-/5 bilaterally by the end of 6 weeks. 4. Patient will improve hip extension strength to at least 4-/5 bilaterally by the end of 6 weeks. LT. Patient will demonstrate at least 9 point increase ( MCID) in LEFS score by the end of 12 weeks to demonstrate improved overall function. 2. Patient will improve hip extension strength to at least 4+/5 bilaterally to indicate improved overall function by the end of 12 weeks. 3. Patient will improve hip abduction strength to at least 4+/5 bilaterally by the end of 12 weeks. 4. Patient will be able to walk for at least 30 minutes with no greater than 3/10 pain by the end of 12 weeks. Coordination/ Referral Source Communication With Treatment Plan/ Joint Mobilization,Manual Therapy,Neuromuscular Re-ed, Direct Interventions Therapeutic Activities,Therapeutic Exercises Frequency/Duration 1x/week for 12 weeks. Patient Will Be Completion of LTG(s),Independent w/HEP,Independently Discharged From Progressing Therapy Evaluation Billing Untimed Code 45 Treatment Minutes Complexity Moderate Certification Information Initial 08/28/24 Certification Date Ending Certification 11/20/24 Date Provider Signature Yes Required Provider Signature POC & Medical Necessity Shows Agreement With Physician NPI Number Write NPI# Here Physician Comment/ : Change Physician Signature Please Sign/Date Here & Date Requested
== END 2025-01-19 08:59 | disposition home or self-care (01) ==
PROVIDERS: PCP Registered Nurse; Visit Provider Orthopaedic Surgery
DX: M25.551 Pain in right hip (principal); M54.50 Low back pain, unspecified; M62.81 Muscle weakness (generalized); Z51.89 Encounter for other specified aftercare
CPT/HCPCS: 97110; 97140; 97162

== ENCOUNTER 2025-01-03 07:35 | Outpatient (CLI) | payer OTHER, SELFPAY | END 2025-01-03 07:36 | disposition home or self-care (01) | PROVIDERS: PCP Family Medicine; Referring Provider Family Medicine; Visit Provider Family Medicine | DX: I10 Essential (primary) hypertension (principal); E03.9 Hypothyroidism, unspecified; Z13.6 Encounter for screening for cardiovascular disorders | CPT/HCPCS: 80053; 80061; 84439; 84443 ==

== ENCOUNTER 2025-01-09 10:49 | Outpatient (CLI) | payer OTHER, SELFPAY ==
[2025-01-11 01:41] LABS: HPV Source Cervical/Vag
[2025-01-12 10:25] LABS: Pap Test Digital Imaging Done
== END 2025-01-09 10:50 | disposition home or self-care (01) ==
PROVIDERS: PCP Family Medicine; Visit Provider Family Medicine
DX: Z12.4 Encounter for screening for malignant neoplasm of cervix (principal)
CPT/HCPCS: 87624; 87625; 88141; 88142; 88175

== ENCOUNTER 2025-01-12 08:21 | Emergency (ER) | payer OTHER, SELFPAY ==
--- OUTSIDE RECORDS SUMMARY | 2024-03-21 03:30 | XMS_ITS ---
Author Organization [facility] Address [address] [place] [address] Care Team Providers Care Maple Sugar Maker Name Role Phone None, No PCP Primary Care Provider Genoveva Galarza [phone] Encounters Encounter Location Date Provider Diagnosis [address] [id number] 03/21/2024 Genoveva Bond Plan Of Treatment No Information Progress Notes * Katerina FREDERICKDOB:1975 (49 yo F)Acc No.[id number]:03/21/2024 Patient: Katerina ULLOA Provider: Sammi Bond :1975 A ge:48 Y S ex:Female Date:03/21/2024 Address:[address] [place], [place] [id number] Pcp:No PCP None Subjective: * Chief Complaints: * * Medical History: Objective: * Vitals: Assessment: Plan: * Treatment: Care Plan: * Problems: * Images: Billing Information: * Visit Code: * Procedure Codes: * Electronic signature of Meron Bond CNP on 01/12/2025 at 09:07 AM STEFFEN HOUSE SUPERVISOR Sign off status: Pending * Provider: Sammi Bond Date: 0 03/21/2024 Generated for Tamanna strong/Gregory/Cordell on: 03/14/2024 09:07 AM STEFFEN HOUSE SUPERVISOR
--- OUTSIDE RECORDS SUMMARY | 2024-07-25 07:30 | XMS_ITS ---
Author Organization [facility] Address [address] [place] [address] Care Team Providers Care Skin Grader Name Role Phone None, No PCP Primary Care Provider Genoveva Galarza [phone] REASON FOR VISIT follow up Encounters Encounter Location Date Provider Diagnosis [address] [id number] 07/25/2024 Genoveva Bond Plan Of Treatment No Information Progress Notes * Katerina FREDERICKDOB:1975 (49 yo F)Acc No.[id number]:07/25/2024 Patient: Katerina ULLOA Provider: Sammi Bond :1975 A ge:48 Y S ex:Female Date:07/25/2024 Address:[address] [place], [place] [id number] Pcp:No PCP None Subjective: * Chief Complaints: * 1 . Follow up. * Medical History: Objective: * Vitals: Assessment: Plan: * Treatment: * Images: Billing Information: * Visit Code: * Procedure Codes: * Electronic signature of Meron Bond CNP on 01/12/2025 at 09:07 AM AIRDROP SYSTEMS TECHNICIAN Sign off status: Pending * Provider: Sammi Bond Date: 0 07/25/2024 Generated for Tamanna strong/Gregory/Cordell on: 1 03/14/2024 09:07 AM AIRDROP SYSTEMS TECHNICIAN
--- OUTSIDE RECORDS SUMMARY | 2024-08-01 07:15 | XMS_ITS ---
Author Organization [facility] Address [address] [place] [address] Care Team Providers Care Dry Box Operator Name Role Phone None, No PCP Primary Care Provider Genoveva Galarza [phone] REASON FOR VISIT IH HRT Encounters Encounter Location Date Provider Diagnosis [address] [id number] 08/01/2024 Genoveva Bond Menopausal and femal e climacteric states N95.1 Assessments Encounter Date Diagnosis (ICD Code) Assessment Notes Treatment Notes Treatment Clinical Notes Section Notes 08/01/2024 Menopausal and female climacteric states (ICD-10 - N95.1) Plan Of Treatment No Information Progress Notes * Katerina FREDERICKDOB:1975 (49 yo F)Acc No.[id number]:08/01/2024 Patient: Katerina ULLOA Provider: Sammi Bond :1975 A ge:49 Y S ex:Female Date:08/01/2024 Address:[address] [place] [id number] Pcp:No PCP None Subjective: * Chief Complaints: * 1 . IH HRT. * Medical History: Objective: * Vitals: Assessment: * Assessment: 1. M enopausal and female climacteric states - N95.1 (Primary) Plan: * Treatment: * Procedure Codes: 8 4270 ASSAY OF SEX HORMONE GLOBUL - IH, 70202 ASSAY OF TESTOSTERONE - IH, 41461 ASSAY OF TOTAL TESTOSTERONE - IH, 81504 VENIPUNCT, ROUTINE* * Images: Billing Information: * Visit Code: * Procedure Codes: 83213 ASSAY OF SEX HORMONE GLOBUL - IH. 38287 ASSAY OF TESTOSTERONE - IH. 03946 ASSAY OF TOTAL TESTOSTERONE - IH. 80958 VENIPUNCT, ROUTINE*. * Electronic signature of Meron Bond CNP on 01/12/2025 at 09:08 AM FIBERGLASS GRINDER Sign off status: Pending * Provider: Sammi Bond Date: 0 08/01/2024 Generated for Tamanna strong/Gregory/Cordell on: 1 03/14/2024 09:08 AM FIBERGLASS GRINDER
--- OUTSIDE RECORDS SUMMARY | 2024-08-08 07:00 | XMS_ITS ---
Author Organization [facility] Address [address] [place] [address] Care Team Providers Care Electrogalvanizing Machine Operator Name Role Phone None, No PCP Primary Care Provider Genoveva Galarza [phone] Encounters Encounter Location Date Provider Diagnosis [address] [id number] 08/08/2024 Genoveva Bond Plan Of Treatment No Information Progress Notes * Katerina FREDERICKDOB:1975 (49 yo F)Acc No.[id number]:08/08/2024 Patient: Katerina ULLOA Provider: Sammi Bond :1975 A ge:49 Y S ex:Female Date:08/08/2024 Address:[address] [place], [place] [id number] Pcp:No PCP None Subjective: * Chief Complaints: * * Medical History: Objective: * Vitals: Assessment: Plan: * Treatment: * Images: Billing Information: * Visit Code: * Procedure Codes: * Electronic signature of Meron Bond CNP on 01/12/2025 at 09:07 AM [facility] [employer] Sign off status: Pending * Provider: Sammi Bond Date: 0 08/08/2024 Generated for Tamanna strong/Gregory/Cordell on: 03/14/2024 09:07 AM [facility] [employer] [facility] [employer]
[2025-01-12 08:29] VITALS: BP 105/82; PULSE 86; RESP 14; TEMP 36.2; O2SAT 99; BMI 20.4
--- NOTE | 2025-01-12 08:44 | ED.GENADULT ---
HPI - General Adult General Chief complaint: Cough Stated complaint: Upper Resp Time Seen by Provider: 01/12/25 08:30 Source: patient Mode of arrival: ambulatory Limitations: no limitations History of Present Illness HPI narrative: 49-year-old female coming in today concerned about feeling run down, losing her voice a little bit, mild cough that is sometimes productive. No fevers. Appetite little less than usual. She feels achy. No nausea or vomiting. No diarrhea. No rashes. Patient is requesting a work note for today and tomorrow. Past medical history reviewed. Related Data Home Medications ?Medication ?Instructions ?Recorded ?Confirmed atomoxetine 60 mg capsule 60 mg PO QAM 10/21/23 01/12/25 (Strattera) norethindrone acetate 1 mg-ethinyl 1 tab PO QDAY 10/21/23 01/12/25 estradiol 20 mcg tablet (Microgestin) zolpidem 12.5 mg tablet,extended 12.5 mg PO QHS PRN 10/21/23 01/12/25 release,multiphase bisacodyl 5 mg tablet 5 mg PO ONCE PRN 01/09/25 01/12/25 Previous Rx's ?Medication ?Instructions ?Recorded ketoconazole 2 % shampoo 1 applic topical 3XW 4 weeks #120 07/10/ mL atenolol 25 mg tablet 25 mg PO QDAY #90 tabs 01/09/25 estradiol 10 mcg vaginal tablet 10 mcg vaginal QDAY #24 tabs 01/09/25 (Vagifem) levothyroxine 125 mcg capsule 125 mcg PO QDAY 90 days #90 caps 01/09/25 Allergies Allergy/AdvReac Type Severity Reaction Status Date / Time Sulfa (Sulfonamide Allergy Intermediate Hives Verified 01/09/25 10:05 Antibiotics) gabapentin Allergy Mild Rash Verified 01/09/25 10:05 Review of Systems Status of ROS: Reports: 10 or more systems reviewed and unremarkable except as noted in History and below [facility] Medical History Labral tear of right hip joint ?S73.191A - Other sprain of right hip, initial encounter (ICD-10) Lumbar degenerative disc disease ?M51.369 - Other intervertebral disc degeneration, lumbar region without mention of lumbar back pain or lower extremity pain (ICD-10) Migraines ?G43.909 - Migraine, unspecified, not intractable, without status migrainosus (ICD-10) 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] (ICD-10) Chronic neck and back pain ?M54.2 - Cervicalgia (ICD-10) ?M54.9 - Dorsalgia, unspecified (ICD-10) ?G89.29 - Other chronic pain (ICD-10) Depression ?F32.A - Depression, unspecified (ICD-10) Chronic constipation ?K59.09 - Other constipation (ICD-10) Essential hypertension ?I10 - Essential (primary) hypertension (ICD-10) Hypothyroidism ?E03.9 - Hypothyroidism, unspecified (ICD-10) Insomnia ?G47.00 - Insomnia, unspecified (ICD-10) ADHD (attention deficit hyperactivity disorder) ?F90.9 - Attention-deficit hyperactivity disorder, unspecified type (ICD-10) History of multiple concussions ?Z87.820 - Personal history of traumatic brain injury (ICD-10) History of substance abuse ?F19.11 - Other psychoactive substance abuse, in remission (ICD-10) Bacterial vaginosis (10/22/23) ?N76.0 - Acute vaginitis (ICD-10) ?B96.89 - Other specified bacterial agents as the cause of diseases classified elsewhere (ICD-10) Vaginal yeast infection (10/22/23) ?B37.31 - Acute candidiasis of vulva and vagina (ICD-10) Surgical History History of laparoscopic cholecystectomy (07/2024) ?Z90.49 - Acquired absence of other specified parts of digestive tract (ICD-10) H/O sinus surgery (2019) ?Z98.890 - Other specified postprocedural states (ICD-10) History of lumbar fusion (2022) ?Z98.1 - Arthrodesis status (ICD-10) History of 3 sections ?Z98.891 - History of uterine scar from previous surgery (ICD-10) History of carpal tunnel release of both wrists (06/2020) ?Z98.890 - Other specified postprocedural states (ICD-10) Family History Sister Cerebral palsy Mother Bipolar disorder Thyroid disease Diabetes Hx of CABG, Onset Age: 49 Father Thyroid disease Paternal Grandmother Stroke, Onset Age: 52 Paternal Grandfather Bladder cancer Family/Other Leukemia Family/Other Chronic mental illness Social History Narrative: 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, 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, 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, 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 No regular exercise Lifetime nonsmoker Rare alcohol use Remote history of opioid addiction, sober since 2013 What is your current living situation?: I presently have a place to live Problems where you live: no known problems In the past 12 months, utilities in danger of being shut off: no In past 12 months, lack of transportation kept you from medical appts, meetings, work, or getting things needed for daily living: no In the past 12 mos, have been you worried that your food would run out before you had money to buy more?: never true In the past 12 mos, the food you bought just didn't last and you didn't have money to buy more?: never true Smoking Status: Never smoker Do you use any of these nicotine containing products: None How often do you have a drink containing alcohol: never How often do you have six or more drinks on one occasion: Never AUDIT-C Alcohol total score: 0 Non-prescribed substance use: denies use Caffeine: Yes How often does anyone, including family, friends and others, physically hurt you: never How often does anyone, including family, friends and others, insult or talk down to you: never How often does anyone, including family, friends and others, threaten you with harm: never How often does anyone, including family, friends and others, scream or curse at you: never Are you using contraception or practicing any form of control: Yes Exam Narrative: Exam Narrative: Well-nourished well-developed patient in no acute distress. Alert and oriented. Answers questions appropriately. Mood and affect are appropriate. Thoughts are goal oriented and rational. No tangential or magical thinking noted. Patient speaks in full sentences without needing to catch her breath. Voice is just slightly raspy. HEENT: Normocephalic atraumatic. Pupils are equally round reactive to light. Extraocular muscles are intact. Conjunctivae are moist without any icterus noted. Moist mucous membranes. Posterior pharynx is normal. Neck is soft without any lymphadenopathy. Cardiovascular: Heart is regular rate and rhythm S1 and S2 are present without any murmurs. Lungs: Clear to auscultation bilaterally no wheezes rhonchi or rales are appreciated. Patient takes deep breaths without any discomfort. Skin: Exposed skin is well perfused without any obvious rashes. Const: Vital Signs, click to edit/add: Vital Signs - 24 hr 01/12/25 08:29 Temperature 97.2 F L Pulse Rate [Pulse Oximeter] 86 Respiratory Rate 14 Blood Pressure [Ri ght Upper Arm] 105/82 Pulse Oximetry 99 Oxygen Delivery Me thod Room Air Course Course ED Course: Triple swab is negative. We discussed doing a chest x-ray to rule out pneumonia patient feels that this is not necessary. Vital Signs Vital signs: Initial Vital Signs Temperature 97.2 F L 01/12/25 08:29 Temperature Source Temporal Artery Scan 01/12/25 08:29 Pulse Rate 86 01/12/25 08:29 Pulse Rhythm Regular 01/12/25 08:29 Respiratory Rate 14 01/12/25 08:29 Blood Pressure 105/82 01/12/25 08:29 Blood Pressure Mean 89 01/12/25 08:29 Blood Pressure Position Sitting 01/12/25 08:29 Pulse Oximetry 99 01/12/25 08:29 Oxygen Delivery Method Room Air 01/12/25 08:29 Vital Signs Temperature 97.2 F L 01/12/25 08:29 Pulse Rate 86 01/12/25 08:29 Respiratory Rate 14 01/12/25 08:29 Blood Pressure 105/82 01/12/25 08:29 Pulse Oximetry 99 01/12/25 08:29 Oxygen Delivery Method Room Air 01/12/25 08:29 Temperature 97.2 F L 01/12/25 08:29 Pulse Rate 86 01/12/25 08:29 Respiratory Rate 14 01/12/25 08:29 Blood Pressure 105/82 01/12/25 08:29 Pulse Oximetry 99 01/12/25 08:29 Oxygen Delivery Method Room Air 01/12/25 08:29 Medical Decision Making MDM Narrative Medical decision making narrative: 49-year-old female with a viral syndrome. We discussed symptomatic treatment reasons for follow-up. Patient given a work note for today and tomorrow. Lab Data Lab results reviewed: Yes I reviewed the patient's lab results Labs: Lab Results 01/12/25 Range/Units 08:44 SARS-CoV-2 (PCR) Negative SARS-CoV-2 (Negative) Influenza Type A (PCR) Negative PCR FLU A (Negative) Influenza Type B (PCR) Negative PCR FLU B (Negative) RSV (PCR) Negative PCR RSV (Negative) Discharge Plan Discharge Clinical Impression: Acute viral syndrome Patient Disposition: Home, Self-Care Condition: Stable Instructions: Viral Syndrome (ED) Prescriptions: No Action norethindrone ac-eth estradiol [Microgestin 03/27 ()] 1-20 mg-mcg tablet 1 tab PO QDAY atomoxetine [Strattera] 60 mg capsule 60 mg PO QAM zolpidem 12.5 mg tablet,ext release multiphase 12.5 mg PO QHS PRN ketoconazole 2 % shampoo 1 applic topical 3XW 28 Days Qty: 120 1RF bisacodyl 5 mg tablet 5 mg PO ONCE PRN levothyroxine 125 mcg capsule 125 mcg PO QDAY 90 Days Qty: 90 3RF estradiol [Vagifem] 10 mcg tablet 10 mcg vaginal QDAY Qty: 24 4RF Rx Instructions: use nightly x2 weeks, then twice weekly thereafter atenolol 25 mg tablet 25 mg PO QDAY Qty: 90 3RF Follow Up/Referrals: Lisa Reed MD [Primary Care Provider, Family Practice] Stand Alone Forms: [employer] Info Instructions
[2025-01-12 09:00] VITALS: BP 107/84; PULSE 83; RESP 16; O2SAT 98
--- OUTSIDE RECORDS SUMMARY | 2025-01-12 09:08 | XMS_ITS | Patient Health Record ---
Author Organization [facility] Address [address] [place] [address] Care Team Providers Care Joint Runner Name Role Phone None, No PCP Primary Care Provider Genoveva Galarza Unavailable [phone] Allergies Allergen (clinical drug ingredient) Drug/Non Drug Allergy documented on EMR Reaction Allergy Type Onset Date Status gabapentin gabapentin Unknown Drug Allergy Activ e Substance with sulfonamide structure and antibacterial mechanism of action (substance) Sulfa Antibiotics Unknown Drug Allergy Active Results Component Value Reference Range Notes Testosterone, Free (IH) Reviewed date:04/19/2024 11:00:45 AM Interpretation: Performing Lab: Notes/Report: Access 2 ([id number]), [facility] Sex Hormone Binding Globulin (IH) Reviewed date:04/19/2024 11:00:45 AM Interpretation: Performing Lab: Notes/Report: Access 2 ([id number]), [facility] Testosterone, Total (IH) Reviewed date:04/19/2024 11:00:44 AM Interpretation: Performing Lab: Notes/Report: Access 2 ([id number]), [facility] FSH Reviewed date:04/19/2024 11:00:44 AM Interpretation: Performing Lab:CB, [facility] [id number], [employer] [id number] Javier Smith Notes/Report: 0; 0; 0 FSH 17.6 Reference Range Follicular Phase 2.5-10.2 Mid-cycle Peak 3.1-17.7 Luteal Phase 1.5- 9.1 Postmenopausal 23.0-116.3 ESTRADIOL Reviewed date:04/19/2024 11:00:44 AM Interpretation: Performing Lab:CB, [facility] [address], [employer] [id number] Javier Smith Notes/Report: 0; 0; 0 ESTRADIOL 91 Reference Range Follicular Phase: 19-144 measurement. The cross reactivity could lead to falsely elevated estradiol test results leading to an inappropriate clinical assessment of estrogen status. [employer] order code [id number], Ultrasensitive LC/MS/MS demonstrates negligible cross reactivity with fulvestrant. Mid-Cycle: 64-357 Luteal Phase: 56-214 Postmenopausal: < or = 31 Reference range established on post-pubertal patient population. No pre-pubertal reference range established using this assay. For any patients for whom low Estradiol levels are anticipated (e.g. males, pre-pubertal children and hypogonadal/post-menopausal females), the [employer] [facility] Estradiol, Ultrasensitive, LCMSMS assay is recommended (order code [id number]). Please note: patients being treated with the drug fulvestrant (Faslodex(R)) have demonstrated significant interference in immunoassay methods for estradiol IRON, TIBC AND FERRITIN MATILDE Means Reviewed date:04/19/2024 11:00:44 AM Interpretation: Performing Lab:[facility] [id number] [id number] Javier Smith Notes/Report: 0; 0; 0 IRON, TOTAL 72 40-190 mcg/dL IRON BINDING CAPACITY 251 250-450 mcg/dL (princess c) % SATURATION 29 16-45 % (calc) FERRITIN 101 16-232 ng/mL Testosterone, Free (IH) Reviewed date:08/11/2024 08:12:11 AM Interpretation: Performing Lab: Notes/Report: Access 2 ([id number]), [facility] Sex Hormone Binding Globulin (IH) Reviewed date:08/11/2024 08:12:11 AM Interpretation: Performing Lab: Notes/Report: Access 2 ([id number]), [facility] Testosterone, Total (IH) Reviewed date:08/11/2024 08:12:11 AM Interpretation: Performing Lab: Notes/Report: Access 2 ([id number]), [facility] Reason For Referral No Information Medications Medication SIG (Take, Route, Frequency, Duration) Notes Start Date End Date Status Vitamin C Active Vitamin B12 Active Zolpidem Tartrate Ac tive Levothyroxine MG 0.125 Daily Created by [employer]. Dosage Instructions: Dosage= .125,Unit= MG,Periodicity= Daily Active Atomoxetine HCl 60 Daily Created by [employer]. Dosage Instructions: Dosage= 60,,Periodicity= Daily Active Estradiol MG 0.1 Twice weekly Created by [employer]. Dosage Instructions: Dosage= .10,Unit= MG,Periodicity= Twice weekly Active Microgestin 20 1-20 MG-MCG 1 tablet Orally Once a day; Duration: 84 days Each pack is a 3 week supply, taking continuously 04/25/2024 Active Testosterone Cream 12mg (3mg dose) Active Microgestin 20 Act hima Social History Tobacco Use: Social History Observation Description Date Details (start date - stop date) Never Smoker NA - NA Tobacco Control (Standard) Question Answer Notes Tobacco use: Nonsmoker Problems Problem Type SNOMED Code ICD Code Onset Dates Problem Status W/U Status Risk Notes Problem Hypoactive sexual desire disorder (183526523) Hypoactive sexual desire disorder (F52.0) Active confirmed Problem Menopause (110177956) Menopausal and female climacteric states (N95.1) Active confirmed Problem Chronic fatigue syndrome (25041620) Chronic fatigue (R53.82) Active confirmed Problem Menopause (823904554) Perimenopausal symptoms (N95.1) Active confirmed Vital Signs Blood pressure diastolic 72 mm Hg 08/23/2024 Height 66 in 08/23/2024 Blood pressure systolic 136 mm Hg 08/23/2024 Weight 131 lbs 08/23/2024 BMI 21.14 kg/m2 08/23/2024 Encounters Encounter Location Date Provider Diagnosis [address] [id number] 08/23/2024 Genoveva Bond Hypoactive sexual desire disorder F52.0 and Chronic fatigue R53.[address] [id number] 08/08/2024 Genoveva Bond Menopausal and femal e climacteric states N95.[address] [id number] 04/25/2024 Genoveva Bond Perimenopausal sympt oms N95.1 and Chronic fatigue R53.[address] [id number] 03/21/2024 Genoveva Bond [facility] [address] [place] [address] 04/18/2024 Genoveva Bond Menopausal and femal e climacteric states N95.1 and Fatigue R53.83 [facility] [address] [place], [place] [id number] 03/21/2024 Genoveva Bond Menopausal symptoms N95.1 ; Chronic fatigue R53.82 and Low libido R68.82 Assessments Encounter Date Diagnosis (ICD Code) Assessment Notes Treatment Notes Treatment Clinical Notes Section Notes 03/21/2024 Menopausal symptoms (ICD-10 - N95.1) 04/18/2024 Menopausal and female climacteric states (ICD-10 - N95.1) 04/18/2024 Fatigue (ICD-10 - R53.83) 04/25/2024 Perimenopausal symptoms (ICD-10 - N95.1) -HRT [...] 3mg daily to labia, Rx to Mix 08/08/2024 Menopausal and female climacteric states (ICD-10 - N95.1) 08/23/2024 Hypoactive sexual desire disorder (ICD-10 - F52.0) -Labs reviewed, testosterone adequate level -Since testosterone not helping with fatigue or libido, ok to discontinue -Discussed Addyi and Vyleesi use/cost/side effects, will think over -Discussed the [email or web address] natalia -Discussed sex therapy -Continue with vaginal estradiol -Discussed silicone based lubricant for intercourse 03/21/2024 Chronic fatigue (ICD-10 - R53.82) 03/21/2024 Low libido (ICD-10 - R68.82) 08/23/2024 Chronic fatigue (ICD-10 - R53.82) -Recommended seeing functional medicine for ongoing fatigue 04/25/2024 Chronic fatigue (ICD-10 - R53.82) -Discussed [...] reviewed. -Counseled on associated increased risks for AK, CVA, VTE, and breast cancer with some forms of hormone replacement therapy. HRT could decrease associated lifetime risks, specifically with the use of bioidentical hormones including estradiol, progesterone, and/or testosterone preparations. Bioidentical hormonal therapies have not been shown to significantly increase risks for AK, CVA, VTE, and/or breast cancer, but do not guarantee prevention of developing these risks if used. meterman associated risks of non-FDA approved bioidential compounded hormones are not known. -Discussed potential side effects of pellet therapy including fluid retention, swelling, breast tenderness, nipple sensitivity, uterine spotting, mood swings and irritability, acne, hair loss and/or hair growth. -Breast cancer screening policy reviewed and printed handout given. Mammogram needed prior to HRT start. -Annual mammogram, clinical breast exam and STATE [employer]ER exams recommended -Plan for follow-up in next available visit to review lab results and proceed with treatment options if desired and indicated 04/25/2024 Other 08/23/2024 Other Plan Of Treatment No Information Insurance Providers Payer Name Payer Address Payer Phone Subscriber Number Group Number Insured Name Patient Relationship to Insured Coverage Start Date Coverage End Date [facility] 2021 RAMIRO (CLIENT bill) [address] [place], [place] [phone] [id number] Katerina Díaz Self - patient is [...]
[2025-01-12 09:32] VITALS: BP 114/85; PULSE 73; RESP 14; O2SAT 99
[2025-01-12 09:33] LABS: PCR FLU A Negative PCR FLU A (Negative); PCR FLU B Negative PCR FLU B (Negative); PCR RSV Negative PCR RSV (Negative); SARS PCR* Negative SARS-CoV-2 (Negative)
== END 2025-01-12 09:45 | disposition home or self-care (01) ==
LOC: ED 09:02
PROVIDERS: Emergency Provider Family Medicine; PCP Family Medicine
DX: B34.9 Viral infection, unspecified (principal)
CPT/HCPCS: 87631; 99283; 99284

== ENCOUNTER 2025-01-15 10:37 | Outpatient (CLI) | payer OTHER, SELFPAY ==
--- NOTE | 2025-01-15 10:45 | CRLHL7_ITS ---
For Patients: As a result of the Century Cures Act, medical imaging exams and procedure reports are released immediately into your electronic medical record. You may view this report before your referring provider. If you have questions, please contact your health care provider. CLINICAL HISTORY: pelvic and perineal pain COMPARISON: None. TECHNIQUE: 2D leary-scale ultrasound. In addition, color Doppler and spectral Doppler analysis was performed of the pelvis using a transabdominal and transvaginal approach. Transvaginal imaging performed to better visualize the endometrial stripe and ovaries. FINDINGS: Right-sided intramural fibroid measures 1.6 x 1.2 x 1.4 cm. Intramural fibroid also noted in the left side of the uterine fundus posteriorly measures 1.7 x 1.4 x 1.3 cm. Posterior fibroid measures 1.8 x 1.1 x 2.1 cm. The endometrial lining measures 6.6 mm in thickness. Mild fluid in the lower uterine segment endometrium. The right ovary measures 1.9 x 1.0 x 1.9 cm in size and the left ovary measures 2.7 x 0.9 x 2.3 cm. The ovaries demonstrate normal arterial and venous blood flow on color Doppler and spectral Doppler analysis. There are no suspicious fluid collections within the cul-de-sac. Simple left adnexal cyst measures 1.3 x 0.9 x 1.1 cm. IMPRESSION: Uterine fibroids measure up to 2.1 cm. Endometrial thickness 6.6 millimeters. Incidental 1.3 cm simple left adnexal cyst. Normal ovaries. Dictated by Patel Fish MD @ 01/15/2025 12:21:46 PM (Electronically Signed)
== END 2025-01-15 10:38 | disposition home or self-care (01) ==
LOC: US 10:37
PROVIDERS: PCP Family Medicine; Visit Provider Family Medicine
DX: R10.20 Pelvic and perineal pain unspecified side (principal); D25.9 Leiomyoma of uterus, unspecified; R93.89 Abnormal findings on diagnostic imaging of other specified body structures; N83.292 Other ovarian cyst, left side; N92.6 Irregular menstruation, unspecified
CPT/HCPCS: 76830; 76856; 93976

== ENCOUNTER 2025-02-21 11:10 | Outpatient (CLI) | payer OTHER, SELFPAY | END 2025-02-21 11:11 | disposition home or self-care (01) | LOC: NFLDREF 02-26 11:43 | PROVIDERS: PCP Family Medicine; Referring Provider Family Medicine; Visit Provider Obstetrics & Gynecology | DX: R10.20 Pelvic and perineal pain unspecified side (principal) | CPT/HCPCS: 87086 ==